=== PATIENT | female | born 1970 | race Two or more races ===

== ENCOUNTER 2018-07-16 03:43 | Emergency (ER) | payer OTHER ==
[~2018-07-16] VITALS: Ht 157.5 cm; Wt 54.7 kg
[2018-07-16 03:46] VITALS: BP 117/47
[2018-07-16] MEDS ORDERED: ANTIDEPRESSANT (03:50)
[2018-07-16] MEDS ORDERED: OMEP-110 PO (03:50)
[2018-07-16] MEDS ORDERED: DIPHENHYDRAMINE 25 MG CAPSULE ONE (04:26)
[2018-07-16] MEDS ORDERED: FAMOTIDINE 20 MG TABLET ONE (04:26)
[2018-07-16] MEDS ORDERED: DIPHENHYDRAMINE 25 MG CAPSULE PO ONE (04:30)
[2018-07-16] MEDS ORDERED: FAMOTIDINE 20 MG TABLET PO ONE (04:30)
== END 2018-07-16 05:23 | disposition home or self-care (01) ==
LOC: ED 05:07
DX: T78.40XA Allergy, unspecified, initial encounter (principal)
CPT/HCPCS: 99284; J7512; Q0163